=== PATIENT | female | born 1955 | race Hispanic/Latino ===

== ENCOUNTER 2024-10-03 14:11 | Outpatient (CLI) | payer MEDICARE, SELFPAY ==
--- NOTE | ~2024-10-03 | DEXA_ITS ---
Bone Density Report Name: HERNAN ESPINOZA Age: 68 Sex: Female Ethnicity: White Date of : 1955 Indication: postmenopausal; screening for osteoporosis; Referring Provider: CURT, DIANA Muhammad Study: Bone densitometry was performed. Exam Date: October 03, 2024 Accession number: [id number] Bone Density: Region BMD T-score Z-score Classification AP Spine(L1-L4) 0.825 -2.0 -0.1 Osteopenia Femoral Neck (Left) 0.720 -1.2 0.4 Osteopenia Total Hip (Left) 0.826 -1.0 0.4 Normal Femoral Neck (Right) 0.659 -1.7 -0.1 Osteopenia Total Hip (Right) 0.798 -1.2 0.1 Osteopenia Total Hip Mean 0.812 -1.1 0.3 Osteopenia World Health Organization criteria for BMD impression classify patients as: Normal (T-score at or above -1.0), Osteopenia (T-score between -1.0 and -2.5), or Osteoporosis (T-score at or below -2.5). 10-year Fracture Risk(1): Major Osteoporotic Fracture 10% Hip Fracture 1.4% Reported Risk Factors: [place] (), Neck BMD=0.659, BMI=24.7 (1) FRAX(R) Version 3.08. Fracture probability calculated for an untreated patient. Fracture probability may be lower if the patient has received treatment. Clinical Information Provided by Patient: Impression: The patient has low bone mass, based on the Total Spine T-score. The patient has an estimated ten-year risk of hip fracture of 1.4% and an estimated ten-year risk of major fracture of 10%, based on the WHO FRAX algorithm. Discussion: BONE DENSITY IS LOW AT ONE OR MORE SKELETAL SITES. This patient's lowest T-score is low at one or more skeletal sites. It meets the World Health Organization's (WHO) criteria for ?low bone mass? (T-score between -1.0 and -2.5). The patient's 10-year risk of fracture as calculated by FRAX is less than the threshold where pharmacological therapy is recommended by the National Osteoporosis Foundation (NOF). However, all treatment decisions require clinical judgment and consideration of individual patient factors, including patient preferences, comorbidities, previous drug use, risk factors not captured in the FRAX model (e.g., frailty, falls, vitamin D deficiency, increased bone turnover, interval significant decline in bone density) and possible under or overestimation of fracture risk by FRAX. The patient should follow a healthful lifestyle (good nutrition with adequate calcium and vitamin D, and appropriate weight-bearing exercise). Follow-Up: Consider repeating this study in 2 to 3 years to reassess this patient's status, or sooner if there is some new clinical indication. Reported by: LUC on 10/03/2024 3:11:00 PM. Reviewed, dictated and finalized at location [facility]
== END 2024-10-03 14:12 | disposition home or self-care (01) ==
PROVIDERS: Visit Provider Internal Medicine
DX: M85.89 Other specified disorders of bone density and structure, multiple sites (principal); M81.0 Age-related osteoporosis without current pathological fracture
CPT/HCPCS: 77080

== ENCOUNTER 2025-02-06 14:39 | Outpatient (CLI) | payer MEDICARE, SELFPAY ==
--- NOTE | ~2025-02-06 | MM_ITS ---
EXAMINATION: MM screening sahil BI w marisol HISTORY: Screening TECHNIQUE: Craniocaudal and mediolateral oblique 3-D tomosynthesis images were obtained and synthetic 2-D images were generated. CAD analysis was submitted and interpreted. COMPARISON: No prior mammogram is available for comparison at this institution. BREAST PARENCHYMAL COMPOSITION: Dense: The breasts are heterogeneously dense, which may obscure small masses FINDINGS: There is a cluster of indeterminate calcifications in the lower outer quadrant of the left breast, middle third. There are no suspicious masses, calcifications or architectural distortion in t he right breast to suggest malignancy. IMPRESSION: 1. Cluster of indeterminate left breast calcifications. 2. Magnification views are recommended. BI-RADS Category 0: Incomplete: Needs additional imaging evaluation. Reviewed, dictated and finalized at location A.
--- OUTSIDE RECORDS SUMMARY | 2025-02-06 14:52 | XMS_ITS | Data Portability ---
Author Organization [place] [employer], Main Office Address [address] [place] [address] Assessment Encounter Date Assessment Date Assessment LastModified by Organization Details LastModified Time 11/01/2024 11/01/2024 Assessment: Mild OSAHS, AHI = 12 Plan: The following were reviewed and explained to the patient: [facility] home sleep study 10/19/23 AHI = 12, supine AHI = 21 [facility] titration sleep study 12/23/23 [employer] wide Melissa nasal mask @ 8 cmH2O Educated the patient on problems and solutions associated with positive airway pressure (PAP) use. Difficulty tolerating pressure, mask leaks, intolerance of interface, nasal congestion, claustrophobic response, dry mouth, and unintentional mask removal during sleep were covered. General information on sleep disordered breathing, evaluation of sleep disordered breathing, treatment with PAP therapy, and living with PAP therapy were covered. We discussed with the patient the impact of weight on: Sleep disordered breathing Mixed hyperlipidemia DM OA We discussed with the patient the benefit of therapy on: Sleep disordered breathing DM Mandibular Advancement Device (MAD) or Mandibular Advancement Split (MAS) therapy discussed. Patient's records will be sent to the specialist of choice. Factors that may negatively impact MAD/MAS candidacy were discussed as follows: history of cancer in head/neck/mouth, history of radiation treatment, gum disease, use of dentures, presence of eight or less teeth in upper and lower jaw, decay or broken teeth/fillings, jaw joint pain or clicking/popping, ear problems such as congestion/tinnit us/pain/vertigo, neck/back/facial pain, frequent headaches, teeth grinding or teeth clenching, etc. Educated the patient on sleep hygiene measures. Relaxing rituals to rest easy, understanding foods with positive and negative impact on sleep, creating a peaceful sleep environment, timing of exercise, using herbal sleep aids, and practicing sleep-friendly meditation were covered. To determine how much sleep is needed, the patient will assess where she falls on the spectrum, examine what lifestyle factors such as work schedules and stress are affecting the quality and quantity of sleep. In general, adults need 7-9 hours of sleep. Educated the patient regarding foods that promote sleep. These include but are not limited to cherries, bananas, toast, oatmeal, and warm milk. Educated the patient regarding foods and drinks to avoid before bedtime. These include but are not limited to aged cheese, chocolate, spicy foods, tomato-based sauces, soy, ginseng tea and processed meat. Advocated influenza vaccination annually and pneumonia vaccination SAHARA. Advocated weight loss through diet and exercise. Patient's ideal body weight according to height and gender is up to 120 lbs. Encouraged patient to adjust caloric intake to maintain/achieve ideal body weight, emphasizing on fruits, vegetables, whole grains, and fat-free or low-fat products. These include lean meats, poultry, fish, beans, eggs, and nuts and foods that are low in saturated fats, trans-fats, cholesterol, salt (sodium), and glycemic index. Stressed the importance of regular exercise up to the patient's capacity limits. In this case, we recommend 20 min daily walking, 2 days a week of resistance training. Patient to monitor BP daily and bring records to PCP for further management. Follow-up: 1 month after MAD use, if she qualifies [email or web address] Not available 11/01/2024 12:00:16 Plan of Treatment Reminders Order Date Submit Date Provider Last Modified By Organization Details Last Modified Time Details Appointments None recorded. Lab glycohemogl obin, total, blood 2024 025 [facility], [address] [place], [address], 5 16:25:39 BMP, serum or plasma 2024 025 [facility], [address] [place], [address], 5 16:25:39 HbA1c (hemoglobin A1c), blood 2023 024 [facility], [address] [place], [address], 4 09:43:38 BMP, serum or plasma 2023 024 [facility], [address] [place], [address], 4 20:42:13 lipid panel, serum 2023 024 [facility], [address] [place], [address], 4 20:42:15 Referral dentist referral - [facility] for VASILE, she wears partial dentures 2024 025 [email or web address], [address], [place], [address], 5 09:15:03 Procedures None recorded. Surgeries None recorded. Imaging MAMMO, screening, bilateral [address] [facility], [address] [address], [facility], [place], [address], 4 18:24:30 DEXA [address] [facility], [address] [address], [facility], [place], [address], 4 14:47:22 Medication Orders ibuprofen 600 mg tablet 2023 024 [facility] #[id number], [address], [place], [address], 4 16:46:00 icosapent ethyl 1 gram capsule 2023 024 [facility]acy #[id number], [address], [place], [address], 4 16:45:58 naproxen 500 mg tablet 2023 024 [email or web address] [facility][id number], [address], [place], [address], 5 15:37:05 glipizide 10 mg tablet 2023 024 [facility]/Pharmacy #[id number], [address], [place], [address], 5 11:35:08 Ozempic 1 mg/dose (4 mg/3 mL) subcutaneou s pen injector 2023 024 [facility]/Pharmacy #[id number], [address], [place], [address], 4 15:22:22 Patient TargetsNo targets recorded. Patient InstructionsNo instructions recorded. Reason for Referral Dentist Referral for Obstruc tive sleep apnea syndrome MAD for VASILE, she wears partial dentures Referring Physician: Brent Hopkins, Pulmonary Disease, Encounter Date: 11/01/2024 Results Created Date Observation Date Name Description Value Unit Range Abnormal Flag Note LastModifiedBy Organization Detail LastModifiedTime 05/31/2005/31/2024 BASIC METAB OLIC PANEL sodium 138 mmol/ L 137-14 5 Not Available [facility] (Lab) [address] [place], [address], 05/31/2024 20:42:13 05/31/2005/31/2024 BASIC METAB OLIC PANEL potassium 4.5 mmol/ L 3.5-5. 1 Not Available [facility] (Lab) [address] [place], [address], 05/31/2024 20:42:13 05/31/20 24 05/31/2024 BASIC METAB OLIC PANEL chloride 109 mmol/ L 98-107 high Not Available [facility] (Lab) [address] [place], [address], 05/31/2024 20:42:13 05/31/20 24 05/31/2024 BASIC METAB OLIC PANEL carbon dioxide 23 mmol/ L 22-30 Not Available [facility] (Lab) [address] [place], [address], 05/31/2024 20:42:13 05/31/20 24 05/31/2024 BASIC METAB OLIC PANEL anion gap 10.5 mmol/ L 14-22 low Not Available [facility] (Lab) [address] [place], [address], 05/31/2024 20:42:13 05/31/20 24 05/31/2024 BASIC METAB OLIC PANEL glucose 159 mg/dL 70-99 high Not Available [facility] (Lab) [address] [place], [address], 05/31/2024 20:42:13 05/31/20 24 05/31/2024 BASIC METAB OLIC PANEL BUN 15 mg/dL 8-19 Not Available [facility] (Lab) [address] [place], [address], 05/31/2024 20:42:13 05/31/20 24 05/31/2024 BASIC METAB OLIC PANEL creatinine 0.60 mg/dL 0.66-1 .25 low Not Available [facility] (Lab) [address] [place], [address], 05/31/2024 20:42:13 05/31/2005/31/2024 BASIC METAB OLIC PANEL GFR >60 Refer ence Range : [place] ge GFR Healt hy Adult : >60 mL/mi n/1.7 3 m2 Chron ic Kidne y Disea se: 15-60 mL/mi n/1.7 3 m2 Kidne y Failu re: <15/m L/min /1.73 m2 www.n iddk. nih.g ov The MDRD study equat ion has not been valid ated in child nancy <18 years of age; pregn ant women ; the elder ly >85 years of age; or in some racia l or ethni c subgr oups, such as Hispa nics. Outsi de the valid ated higinio eters , estim ated GFR is less accur ate, requi ring clini emilie judgm ent on a case- by-ca se basis . Clini emilie inter preta tion for other races and ages must be made by the clini jojo. The MDRD study equat ion has not been valid ated for the evalu ation of serum creat inine relat ed to nutri abiodun l statu s or medic ation usage . For perso ns <18 years of age, a pedia tric GFR calcu lator is avail able on the [facility] websi te: https :[email or web address] [email or web address] rosen.o valeria/pr ofess ional s/kdo qi/gf r_cal culat or Not Available [facility] (Lab) [address] [place], [address], 05/31/2024 20:42:13 05/31/2005/31/2024 BASIC METAB OLIC PANEL calcium 10.0 mg/dL 8.4-10 .2 Not Available [facility] (Lab) [address] [place], [address], 05/31/2024 20:42:13 05/31/2005/31/2024 LIPID PANEL cholesterol 165 mg/dL 140-19 9 NIH DARRELL NSUS RECOM MENDA TION FOR KANDICE STERO L: ADULT CHILD LOW RISK: <200 <170 BORDE RLINE : <200- 239 ----- HIGH RISK: >240 >200 Not Available [facility] (Lab) [address] [place], [address], 05/31/2024 20:42:15 05/31/2005/31/2024 LIPID PANEL triglyceride s 361 mg/dL 0-150 high NIH DARRELL NSUS REPOR T RECOM MENDA TION FOR TRIGL YCERI MAGNOLIA: ADULT CHILD LOW RISK: <150 ----- BODER LINE: 150-1 99 ----- HIGH RISK: >200 ----- Not Available [facility] (Lab) [address] [place], [address], 05/31/2024 20:42:15 05/31/20 24 05/31/2024 LIPID PANEL HDL cholesterol 33 mg/dL 40- low Not Available [facility] (Lab) [address] [place], [address], 05/31/2024 20:42:15 05/31/20 24 05/31/2024 LIPID PANEL LDL cholesterol, calculated 60 mg/dL 0-130 NIH DARRELL NSUS REPOR T RECOM MENDA TIONS FOR LDL: ADULT CHILD LOW RISK <130 <110 (OPTI MAL LDL) <100 ----- BORDE RLINE : 130-1 59 ----- HIGH RISK: >160 >130 A TRIGL YCERI DE RESUL T >400 INVAL IDATE S THE CALCU LATIO N FOR LDL FRACT IONAT ION - THE LDL RESUL T WILL NOT BE REPOR DAVID. Not Available [facility] (Lab) [address] [place], [address], 05/31/2024 20:42:15 05/31/20 24 05/31/2024 HEMOG LOBIN A1C HA1C 8.7 % 4.0-6. 0 high Diabe tyler Scree taz Crite manan: <5.7% Consi stent with absen ce of diabe tyler 5.7-6 .4% Consi stent with incre ased risk for diabe tyler (pred iabet es) >OR=6 .5% Consi stent with diabe tyler REFER ENCE: Diabe tyler Care 2016, 39(Lee ppl.1 ):s13 -s22 Not Available [facility] (Lab) [address] [place], [address], 05/31/2024 21:25:00 10/12/19 25 10/03/2024 DEXA No observ ation record ed. [facility] ([facility]) [address], [place], [address], 10/12/2024 18:49:33 Result Notes None recorded. Problems Name Problem SNOMED Code Status Onset Date Resolution Date Notes Provider Name and Address Organization Details Recorded Time Hyperpara thyroidis m 11209198 Active 2022 Not Available [facility] 4 02:09:39 Abdominal pain 64328800 Completed 202205/25/2023 Ольга rojas RMA null, [place] [facility] 3 11:27:15 Acute urinary tract infection 975247288 Completed 202205/25/2023 Ольга rjoas, RMA null, [place] [facility] 3 11:26:31 Laborator y test result abnormal 243881990 Completed 202209/15/2023 Ольга rojas RMA null, [place] [facility] 3 15:36:01 Hypertrig lyceridem ia 441951933 Active 2022 Not Available [facility] 4 02:09:39 Type 2 diabetes mellitus 97709354 Completed 202209/15/2023 Brent Hopkins MD [address] [place] [address], [address] , [place] [facility] 5 12:01:33 Osteoarth ritis 773769274 Active 2022 Not Available [facility] 4 02:09:39 Fatigue 41336262 Completed 202209/15/2023 Ольга rojas RMA null, [place] [facility] 3 15:35:36 Polyp of colon 21217741 Active 2023 Ольга rojas RMA null, [place] [facility] 4 14:59:45 Obstructi ve sleep apnea syndrome 31625899 Active 2023 Ольга rojas RMA null, [place] [facility] 4 14:59:47 Hyperlipi demia 76926268 Active 2023 Ольга rojas, RMA null, [place] [facility] 4 14:59:37 Type 2 diabetes mellitus 10635543 Active 2023 Brent Hopkins MD [address] [facility], [address], [place], [address] , [place] [facility] 5 12:01:33 Sleep apnea 73879064 Active 2023 Ольга rojas, RMA null, [place] [facility] 4 14:59:43 Adult health examinati on Active 2023 Ольга rojas, RMA null, [place] [facility] 4 14:59:39 Tendiniti s of right elbow 27509632738 139202 Active 2023 sEtrada Harry MD [address] [facility], [address], [place], [address] , [place] [facility] 4 14:47:33 Postmenop ausal osteoporo sis 374169142 Active 2024 Brooke Patel MA null, [place] [facility] 5 10:46:06 Notes:[facility] titration sleep s tudy 12/23/23 Mark wide Melissa nasal mask @ 8 cmH2O Medical History: Mild OSAHS, AHI = 12, 10/19/23, on CPAP c/o IVRC Mixed hyperlipidemia T2DM OA Procedure History: Tubal ligation 1985 Colonoscopy with polypectomy 2017 Occupational History: Retired nurse Problem Notes None recorded. Procedures Surgical History Date Name Laterality Status Provider Name and Address Organization Details Recorded Time Lasik completed Nydia Hancock on, ROAD TEST EXAMINER [place] [facility] [employer] 03/08/2023 11:56:30 Imaging Results Imaging Date Name Status LastModified by Organizatio n Details LastModified Time 10/03/2024 [facility] [address], [place], [address], 10/12/2024 18:49:33 Procedure Notes None recorded. Medical Equipment None Reported. Allergies Allergen ID Allergen Name Allergen Category Reaction Reaction Severity Criticality Documentation Date Start Date Code Code System Note Provider Name and Address Organization Details Recorded Time 62412 metformin medicatio n diarrhea Not available Not available 03/08/2023 6809 RxNorm Estrada Harry MD [address], [facility] [address], [place], [address], [facility] [employer] [facility] 3 12:15:02 Medications Name Sig Start Date Stop Date Status Note LastModified by Organization Details LastModified Time glipizide 10 mg tablet Take 1 tablet twice a day by oral route for 90 days. 11/01 completed Not Available Not Available Not Available ibuprofen 600 mg tablet Take 1 tablet 3 times a day by oral route as needed. active Not Available Not Available No t Available naproxen 500 mg tablet Take 1 tablet twice a day by oral route as needed. 10/27 completed Not Available Not Available Not Available cyclosporin e 0.05 % eye drops in a dropperette 09/07 completed Not Available Not Available Not Available rosuvastati n 10 mg tablet TAKE 1 TABLET BY MOUTH EVERY DAY active Not Available Not Available No t Available rosuvastati n 20 mg tablet Take 1 tablet every day by oral route. active Not Available Not Available No t Available nitrofurant oin monohydrate /macrocryst als 100 mg capsule Take 1 capsule every 12 hours by oral route for 5 days. 04/27 completed Not Available Not Available Not Available GaviLyte-G 236 gram-22.74 gram-6.74 gram-5.86 gram oral solution 01/16 completed Not Available Not Available Not Available OneTouch Verio test strips One strip BID to test BS 10/27 completed Not Available Not Available Not Available Vascepa 1 gram capsule Take 2 capsules twice a day by oral route. active Not Available Not Available No t Available Jardiance 25 mg tablet Take 1 tablet every day by oral route. active Not Available Not Available No t Available OneTouch Delica Plus Lancet 30 gauge USE TO TEST ONCE DAILY 10/27 completed Not Available Not Available Not Available Ozempic 1 mg/dose (4 mg/3 mL) subcutaneou s pen injector INJECT 1 MG UNDER THE SKIN ONCE WEEKLY 2024 active Not Available Not Available Not Avai lable Ozempic 0.25 mg or 0.5 mg (2 mg/3 mL) subcutaneou s pen injector INJECT 0.5 MG UNDER THE SKIN EVERY WEEK 09/11 completed Not Available Not Available Not Available Vitals Date Recorded Body height Body mass index (BMI) Body weight Body temperature Heart rate Oxygen saturation Oxygen saturation in Arterial blood by Pulse oximetry Systolic blood pressure Diastolic blood pressure Provider Name and Address Organization Details Last Updated DateTime 4 157.48 cm 24 kg/m2 64992.6 g 97.3 [degF] 108 /min 98 % 98 % 120 mm[Hg] 80 mm[Hg] Ольга orozco NORIS [employer] 4 14:52:04 Date Recorded Body height Body mass index (BMI) Body weight Body temperature Heart rate Oxygen saturation Oxygen saturation in Arterial blood by Pulse oximetry Systolic blood pressure Diastolic blood pressure Provider Name and Address Organization Details Last Updated DateTime 4 157.48 cm 24.3 kg/m2 64950.7 9 g 97.6 [degF] 74 /min 98 % 98 % 130 mm[Hg] 80 mm[Hg] Ольга orozco NORIS [employer] 4 14:30:36 Date Recorded Body weight Body temperature Body mass index (BMI) Body height Heart rate Oxygen saturation Oxygen saturation in Arterial blood by Pulse oximetry Systolic blood pressure Diastolic blood pressure Provider Name and Address Organization Details Last Updated DateTime 4 59035.7 9 g 97.4 [degF] 24.3 kg/m2 157.48 cm 87 /min 98 % 98 % 140 mm[Hg] 84 mm[Hg] Ольга orozco NORIS [employer] 4 16:12:47 Date Recorded Body height Body mass index (BMI) Body weight Body temperature Heart rate Oxygen saturation Oxygen saturation in Arterial blood by Pulse oximetry Systolic blood pressure Diastolic blood pressure Provider Name and Address Organization Details Last Updated DateTime 5 157.48 cm 24.3 kg/m2 12224.7 9 g 97.5 [degF] 101 /min 98 % 98 % 120 mm[Hg] 80 mm[Hg] Ольга Soriano NORIS orozco [employer] 14:49:40 Date Recorded Body height Body mass index (BMI) Body weight Body temperature Heart rate Oxygen saturation Oxygen saturation in Arterial blood by Pulse oximetry Systolic blood pressure Diastolic blood pressure Provider Name and Address Organization Details Last Updated DateTime 157.48 cm 24.3 kg/m2 72219.7 9 g 98.1 [degF] 71 /min 98 % 98 % 122 mm[Hg] 74 mm[Hg] Mercy Manrique MA [employer] 5 11:39:29 Date Recorded Heart rate Respiratory rate Provider N yogi and Address Organization Details Last Updated DateTime 11/01/2024 71 /min 15 /min Brent Hopkins MD [address], [address], [employer] 11/01/2024 12:01:48 Social History Question Answer Notes LastModified by Organizat ion Details LastModified Time Tobacco Smoking Status Never Smoker Nydia Childers CMA null, [employer] 03/08/2023 11:56:57 Do You Have An Advance Directive? No [email or web address] Information not available 03/08/2023 Are You Blind Or Do You Have Difficulty Seeing? Yes Wears Glasses [email or web address] Information not available 03/08/2023 Is Blood Transfusion Acceptable In An Emergency? No [email or web address] Information not available 03/08/2023 What Is Your Level Of Caffeine Consumption? Moderate [email or web address] Information not available 03/08/2023 In The 14 Days Before Symptom Onset, Have You Had Close Contact With A Laboratory-confi rmed COVID-19 While That Case Was Ill? No [email or web address] Information not available 03/08/2023 In The 14 Days Before Symptom Onset, Have You Had Close Contact With A Person Who Is Under Investigation For COVID-19 While That Person Was Ill? No [email or web address] Information not available 03/08/2023 Are You Deaf Or Do You Have Serious Difficulty Hearing? No [email or web address] Information not available 03/08/2023 What Type Of Diet Are You Following? VEGETARIAN [email or web address] Information not available 03/08/2023 Do You Have An Electrostatic Air Filter? Yes Information not available 10/26/2023 Have There Been Any Changes To Your Family Or Social Situation? No [email or web address] Information not available 03/08/2023 Do You Have A Humidifier? No Information not available 10/26/2023 Do You Use Insect Repellent Routinely? No Information not available 03/08/2023 [email or web address] Information not available 12/30/2023 Do You Have A Medical Power Of Bladder Tier? No [email or web address] Information not available 03/08/2023 Do You Have Moisture Problems In Your Home? No Information not available 10/26/2023 What Was The Date Of Your Most Recent Tobacco Screening? 11/01/2024 Information not available 11/01/2024 Do You Have Any Pets? No [email or web address] Information not available 03/08/2023 What Is Your Relationship Status? [email or web address] Information not available 03/08/2023 Do You Use Your Seat Belt Or Car Seat Routinely? Yes [email or web address] Information not available 03/08/2023 Are You Sexually Active? No [email or web address] Information not available 03/08/2023 Do You Have Smoke And Carbon Monoxide Detectors In Your Home? Yes [email or web address] Information not available 03/08/2023 Are You Passively Exposed To Smoke? Yes [email or web address] Information not available 03/08/2023 Are There Any Smokers In Your House? Yes [email or web address] Information not available 03/08/2023 Do You Use Sunscreen Routinely? No [email or web address] Information not available 03/08/2023 Has Tobacco Cessation Counseling Been Provided? No [email or web address] Information not available 03/08/2023 Have You Recently Traveled Abroad? No [email or web address] Information not available 03/08/2023 Do You Have Any Dietary Restrictions? No Information not available 03/08/2023 Sex: Unknown Functional Status Question Answer Note LastModified by Organizat ion Details LastModified Time Are you currently employed? Yes [email or web address] Information not available 03/08/2023 Do you have difficulty walking or climbing stairs? No [email or web address] Information not available 03/08/2023 Have you been exposed to chemicals or toxins? not that aware of Information not available 10/26/2023 Do you have transportation difficulties? No [email or web address] Information not available 03/08/2023 Are you able to care for yourself? Yes [email or web address] Information n ot available 03/08/2023 Do you have difficulty dressing or bathing? No [email or web address] Information not available 03/08/2023 What is your exercise level? Moderate [email or web address] Information not available 03/08/2023 Do you use any illicit or recreational drugs? No [email or web address] Information not available 03/08/2023 Do you or have you ever used any other forms of tobacco or nicotine? No [email or web address] Information not available 03/08/2023 What is your level of alcohol consumption? None [email or web address] Information not available 03/08/2023 Are you able to walk? YESWOREST [email or web address] Information not available 03/08/2023 Do you have difficulty doing errands alone? No [email or web address] Information not available 03/08/2023 What is your occupation? retired [email or web address] Information not available 03/08/2023 Mental Status Question Answer Note LastModified by Organizat ion Details LastModified Time Do you feel stressed (tense, restless, nervous, or anxious, or unable to sleep at night)? [id number] [email or web address] Information not available 03/08/2023 Do you have difficulty concentrating, remembering or making decisions? No [email or web address] Information no t available 03/08/2023 Family History Relationship Description Onset Age of this Age Resolved Age Notes LastModified by Organization Details LastModified Time Mother Diabetes mellitus [email or web address] Not available 08/2023 11:56:12 Mother Hyperlipidem ia [email or web address] Not available 08/2023 11:56:19 Medical History No medical history recorded. Gynecological HistoryNo gynecological history recorded. Obstetrics History GPAL:G 0 P 0 0 0 0 Immunizations Vaccine Type Date Status Note Provider Nam e and Address Organization Details Recorded Time Influenza, high-dose, quadrivalent, PF 3 completed Estrada Harry MD [address] [facility], [facility] [address], [place], [address], [facility] [employer] 06/29/2023 15:23:10 Pneumococcal conjugate PCV 13 4 completed Bubba Simmons, ROAD TEST EXAMINER null, [place] [facility] [employer] [facility] 10/06/2023 16:44:05 Pneumococcal conjugate PCV 13 4 completed Estrada Harry MD [address], [address], [place], [address], [facility] [employer] [facility] [employer] [facility] 10/21/2023 09:26:28 Influenza, high-dose, trivalent, PF 4 completed Estrada Harry MD [address], [address], [place], [address], [facility] [employer] 07/03/2024 17:35:37 Past Encounters Encounter ID Performer Location Encounter Start Date Encounter Closed Date Diagnosis/Indication Diagnosis SNOMED-CT Code Diagnosis ICD10 Code Diagnosis Note [id number] Estrada Harry MD [facility] Internal Med [facility] [address] [place] [address] 03/08/2023 11:49:34 03/08/2023 12:30:31 Adult health examination 345722119 Z00.00 Mammo- 07/2022 Dexa- 2 P1- 2021 PPV23- Flu-2022 Colonoscop y- 2017 COVID- 2 vaccines, 1 booster Diabetes mellitus 019832 09 E11.9 labs , adjust meds Hyperlipidemia 40544575 E78.5 labs Hyperparathyroidism 6699 9008 E21.3 Hypercalcemia 31664555 E 83.52 labs Abdominal pain 13762477 R10.9 [id number] Estrada Harry MD [facility] Internal [address] [place] [address] 03/22/2023 14:59:33 03/22/2023 16:23:41 Diabetes mellitus 58122449 E11.9 a1C was not done, reorder Hyperparathyroidism 6699 9008 E21.3 needs ultra sound, refer to ENT [id number] Estrada Harry MD [facility] Internal [address] [place] [address] 03/26/2023 10:48:04 03/26/2023 11:26:57 Diabetes mellitus 42281955 E11.9 a1C 9.8, dist discussed, monitor accu checks , add jardiance [id number] Estrada Harry MD [facility] Internal [place] [address] [facility] [place] [address] 04/27/2023 14:09:15 04/27/2023 15:04:51 Diabetes mellitus 62648625 E11.9 getting better, watch diet, keep the same meds, labs in 2 months [id number] Estrada Harry MD [facility] Internal [place] [address] [facility] [place] [address] 06/29/2023 14:08:42 06/29/2023 14:45:14 Type 2 diabetes mellitus 55434303 E11.9 getting better, labs then decide about the meds Hyperlipidemia 06965068 E78.5 under control Hypertriglyceridemia 302 329144 E78.1 keep watching diet Hypercalcemia 71769633 E 83.52 check labs Hyperparathyroidism 6699 9008 E21.3 nl scan Osteoarthritis 498831006 M19.90 Administra tion of influenza vaccine 54284943 Z23 [id number] Estrada Harry MD [facility] [address] [facility] [place] [address] 09/07/2023 14:42:11 09/07/2023 15:28:38 Fatigue 89439179 R53.83 Sleep michael su disturbance 92119057 G47.9 sleep apnea score done, report in the chart Diabetes mellitus 061118 09 E11.9 Hyperlipidemia 96249292 E78.5 under control Sleep apnea 01067078 G47 .30 [id number] Estrada Harry MD [facility] Internal [place] [address] [facility] [place] [address] 10/06/2023 14:51:32 10/06/2023 15:35:40 Diabetes mellitus 45846921 E11.9 start ozempic Polyp of colon 66576961 K63.5 last colonoscop y 2017 Administra tion of pneumococcal vaccine 85298149 Z23 [id number] Brent Hopkins MD [facility] Pulmonolo gy [address] [address] 10/26/2023 10:45:07 10/28/2023 15:17:15 Obstructive sleep apnea syndrome 17467677 G47.33 G47.36 G47.61 [id number] Estrada Harry MD [facility] Internal Med [place] [address] [facility] [place] [address] 11/15/2023 15:03:12 11/15/2023 15:41:39 Diabetes mellitus 05184782 E11.9 ^ ozempic to 0.5 [id number] Brent Hopkins MD [facility] Pulmonolo gy [place] [address] [address] 12/30/2023 14:51:10 12/31/2023 08:44:29 Obstructive sleep apnea syndrome 02874451 G47.33 G47.36 G47.61 [id number] Estrada Harry MD [facility] Internal [address] [address] 01/17/2024 14:38:48 01/17/2024 15:31:37 Type 2 diabetes mellitus 07987636 E11.9 getting better, 6 OZEMPIC to 1 mg Hyperlipidemia 77743217 E78.5 NOT under control, ^ the dose Hypertriglyceridemia 302 083607 E78.1 keep watching diet Hypercalcemia 93294152 E 83.52 fair Hyperparathyroidism 6699 9008 E21.3 nl scan Osteoarthritis 176606988 M19.90 Sleep apnea 08071994 G47 .30 waiting for cpap [id number] Estrada Harry MD [facility] Internal [address] [place] [address] 05/22/2024 14:42:06 05/22/2024 15:36:20 Type 2 diabetes mellitus 29101431 E11.9 getting better, Hyperlipidemia 22309461 E78.5 on meds Hypertriglyceridemia 302 686431 E78.1 keep watching diet Hypercalcemia 46733063 E 83.52 fair Hyperparathyroidism 6699 9008 E21.3 nl scan Osteoarthritis 006843390 M19.90 Sleep apnea 31953928 G47 .30 waiting for cpap, urged to make appt Adult heal th examination 634685068 Z00.00 Mammo- 07/2022- [facility]- 0416O11- 1080YCH04- Flu-3Co lonoscopy- 2018, 11/16/23CO VID- 2 vaccines, 1 booster Screening mammography 24 723855 Z12.31 Screening for osteoporosis 973170079 Z13.806 [id number] Estrada Harry MD [facility] Internal [facility] [address] [facility] [place] [address] 07/03/2024 14:08:19 07/03/2024 14:57:05 Administration of influenza vaccine 63473992 Z23 Tendinitis of right elbow 4848854670 2201593 M67.823 take naprosyn 500 bidice angely Diabetes mellitus 040461 09 E11.9 uncontroll ednot watching dietdiet discussedr fatimah Glipizide [id number] Estrada Harry MD [facility] Internal [facility] [address] [facility] [place] [address] 08/15/2024 15:43:32 08/15/2024 16:53:55 Type 2 diabetes mellitus 74607559 E11.9 getting better, accu checks reviewed, advised to stop eating sweets Hyperlipidemia 46507909 E78.5 on meds Hypertriglyceridemia 302 733536 E78.1 keep watching diet Hypercalcemia 64606109 E 83.52 fair Hyperparathyroidism 6699 9008 E21.3 nl scan Osteoarthritis 107446429 M19.90 Sleep apnea 84138373 G47 .30 waiting for cpap, urged to make appt Adult heal th examination 420368042 Z00.00 Mammo- 07/2022- DUE- Has not scheduled, discussedD exa- 2021- Scheduled for 09/20247794G22- 3790BGC83- Flu-4Colono scopy- 2018, 11/16/23CO VID- 2 vaccines, 1 booster [id number] Estrada Harry MD [facility] Internal Med [place] [address] [place] [address] 10/10/2024 14:41:55 10/10/2024 15:33:03 Diabetes mellitus 72347958 E11.9 getting betterkeep watching diet [id number] Brent Hopkins MD [facility] Pulmonolo gy [place] [address] [place] [address] 11/01/2024 11:22:54 11/01/2024 13:04:03 Obstructive sleep apnea syndrome 79028721 G47.33 Health Concerns Section Related Observation LastModified by Organization Detai ls LastModified Time None Recorded Concern Status LastModified by Organization Details LastModified Time None Recorded Advance Directives Directive N: Payers Encounter Date Sequence Insurance Name Policy Number Policy Mchugh Covered Member ID Mchugh Member ID Guarantor Name 05/22/2024 1 [facility] (MEDICARE REPLACEMENT/A DVANTAGE - PPO) [id number] Mendez Jennifer Dastig [id number] Mendez Jennifer Dastig 07/03/2024 1 [facility] (MEDICARE REPLACEMENT/A DVANTAGE - PPO) [id number] Mendez Jennifer Dastig [id number] Mendez Jennifer Dastig 08/15/2024 1 [facility] (MEDICARE REPLACEMENT/A DVANTAGE - PPO) [id number] Mendez Jennifer Dastig [id number] Mednez Jennifer Dastig 10/10/2024 1 [facility] (MEDICARE REPLACEMENT/A DVANTAGE - PPO) [id number] Mendez Jennifer Dastig [id number] Mendez Jennifer Dastig 11/01/2024 1 [facility] (MEDICARE REPLACEMENT/A DVANTAGE - PPO) [id number] Mendez Jennifer Dastig [id number] Mendez Jennifer Dastig Notes Date Note Type Note Provider Name and Address Organization Details Recorded Time 4 text/html Pt is here today for her routine follow [place] , family in townPT IS NOT FASTINGMedicare Wellness Exam she was not feeling well for the last 4 days, had runny nose and cough but feeling better today and has no symptoms DM-Has not been checking Accu checks, diet better, A1c was 9, then 8 (01/13/24)Gets eye exam yearly - 03/2024- [facility]- in chartNo hyperglycemiaNo numbness or tinglingCould not take Metformin- caused too much diarrheaMed- Jardiance 25 mg qd, Ozempic 0.5 mg qd Hyperlipidemia-on meds and under controlMed- Rosuvastatin 10 mg Hypertriglyceridemia- advised to watch diet Hyperparathyroidism- PTH was high, calcium high, parathyroid scan nl Hypercalcemia-mild, due to hyperthyroidism, Osteoarthritis- naprosyn prn Colon polyp- had colonoscopy 2023, no report Sleep apnea- waiting for cpap ( has just called her to 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 Said she was pulling up heavy carpet and felt something happen but she just ignored it thinks it will get better but it has not. Now hurting to the point there is things that she is limited to do like cleaningno swellingno weakness Also needs to go over lab results. A1c was 8.7Takes Ozempic and JardianceTriglycerides were 361. Currently on Rosuvastatin 20mg daily Estrada Harry MD [address], [place], [address], Xan[facility] 07/03/2024 17:35:52 4 text/html Pt is here today for her routine follow upshe [place] , family in townPT IS NOT FASTING DM-Accu checks- 99-169,Not watching diet, eating [id number] -8.7Gets eye exam yearly - 03/2024- [facility]- in chartNo hyperglycemiaNo numbness or tinglingCould not take Metformin- caused too much diarrheaMed- Jardiance 25 mg qd, Ozempic 1 mg qd Hyperlipidemia-on meds and under controlMed- Rosuvastatin 10 mg Hypertriglyceridemia- advised to watch diet, take fish oil caps Hyperparathyroidism- PTH was high, calcium high, parathyroid scan nl Hypercalcemia-mild, due to hyperthyroidism, Osteoarthritis- naprosyn prn Colon polyp- had colonoscopy 2023, no report Sleep apnea- has cpap but can't use it Estrada Harry MD [address], [place], [address], Xanody[facility] 08/15/2024 16:50:24 5 text/html Pt is here today for a 2 month follow upGlucose 109-136. States she has cut back on sweets. on ozempicaccu checks are under 122losing weight Estrada Harry MD [address] [facility], [facility] [address], [place], [address], [place] [facility] [employer] 10/10/2024 15:28:37 5 text/html Primary care/Referring provider: Estrada Harry MD CC: I cannot use the CPAP because of all the tubes. I bought and use an anti snoring device artifact snoring treatment in the meantime. I wear partial dentures above and below. During the [facility] home sleep study 10/19/23, AHI = 12, supine AHI = 21. 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 The patient does not need the ramp to start low and go up slowly on the pressure. There is no xerostomia in a.m. There is no hose/mask condensation with water. The patient owns a [employer] wide Melissa nasal mask without chin strap. There is no claustrophobia, no nostril/nose bridge irritation, no facial rash, no facial numbness, no nosebleeding. The patient feels less refreshed upon waking and daytime alertness is mildly improved. Energy levels are sustained until noon. At home, the patient sleeps from 12 am to 8 am and wakes up without an alarm. Snoring: heavy, since 1980s.Snorting: yesChoking: yesCoughing: yesGasping: yesGagging: yesSighing: yesWitnessed apnea: yesTwitching or jerking of leg(s), arm(s), body, head: yesTeeth grinding: noTeeth clenching: noSleeptalking: noSleepwalking: noSleep crying: noBedwetting: noTongue/lip/gum/cheek biting: noSleeping with open mouth: yesSleep paralysis: yesHypnagogic hallucinations: noHypnopompic hallucinations: noVivid dreams: yesDifficulty with sleep onset: noDifficulty with sleep maintenance: yesSleep interruptions: snoringPatient wakes up with: fatigue, xerostomia, sore throat, hoarse voice, headaches, cognitive impairment, dexterity impairmentDaytime cataplexy: noMorning hypersomnolence: yesAfternoon hypersomnolence: yesCaffeine sources in diet: coffee 1 cup per day, tea 1 cup per day, chocolate 1 candy per day Associated medical and psychiatric conditions:Congestive heart failure: noCoronary artery disease: noMyocardial infarction: noHypertension: noStroke: noBronchial asthma: noChronic obstructive pulmonary disease: noDepression: noBipolar disorder: noAnxiety: noPanic disorder: noPosttraumatic stress disorder: noAttention deficit and hyperactivity disorder: noObsessive Compulsive disorder: noSchizophrenia: noSchizoaffective disorder: noPersonality disorder: noChronic analgesic use: noChronic sedative/hypnotic use: no EPWORTH SLEEPINESS SCALE (ESS) CHANCE OF DOZING SCORE0 = would never doze1 = slight chance of dozing2 = moderate chance of dozing3 = high chance of dozing SITUATION AND CHANCE OF DOZINGSitting and reading - 0Watching television - 0Sitting inactive in a public place (e.g. a theater or meeting) - 0As a passenger in a car for an hour without a break - 0Lying down to rest in the afternoon when circumstances permit - 0Sitting and talking to someone - 0Sitting quietly after lunch without alcohol - 0In a car, while stopped for a few minutes in the traffic - 0TOTAL SCORE 0Subjectively, patient has no chance of dozing. Brent Hopkins MD [address] [place] [address] [address], [place], [address], [place] [facility] 11/01/2024 12:07:14 OBGyn Episode No OBEpisode recorded.
== END 2025-02-06 14:40 | disposition home or self-care (01) ==
PROVIDERS: PCP Internal Medicine; Visit Provider Internal Medicine
DX: Z12.31 Encounter for screening mammogram for malignant neoplasm of breast (principal); R92.1 Mammographic calcification found on diagnostic imaging of breast
CPT/HCPCS: 77063; 77067

== ENCOUNTER 2025-03-13 10:14 | Outpatient (CLI) | payer MEDICARE, SELFPAY ==
--- NOTE | ~2025-03-13 | MMUS_ITS ---
EXAMINATION: MM diagnostic sahil LT w marisol, US breast LT complete HISTORY: Follow-up clustered indeterminate left breast calcifications TECHNIQUE: Additional 3-D tomosynthesis images of the left breast were performed and synthetic 2-D im ages were generated. CAD analysis was submitted and interpreted. High resolution complete left breast ultrasound was performed. COMPARISON: 02/06/2025 BREAST PARENCHYMAL COMPOSITION: Not dense: There are scattered areas of fibroglandular density. FINDINGS: MAMMOGRAPHIC FINDINGS: There are no suspicious masses, calcifications or architectural distortion. Linear calcifications in the lower outer quadrant of the left breast are most likely vascular. ULTRASOUND: Complete US of all 4 quadrants of the left breast/s and retroareolar region was reviewed. Normal hete rogeneous echotexture without focal solid or cystic mass. IMPRESSION: 1. No evidence for malignancy in the left breast. 2. Routine yearly screening mammogram and regular clinical breast examination are recommended. BI-RADS Category 2: Benign finding(s). Reviewed, dictated and finalized at location A. IMPRESSION: 1. No evidence for malignancy in the left breast. 2. Routine yearly screening mammogram and regular clinical breast examination a re recommended. BI-RADS Category 2: Benign finding(s).
--- OUTSIDE RECORDS SUMMARY | 2025-03-13 11:26 | XMS_ITS | Data Portability ---
Author Organization [place] [facility] [employer], Main Office Address [address] [place] [address] Assessment Encounter Date Assessment Date Assessment LastModified by Organization Details LastModified Time 11/01/2024 11/01/2024 Assessment: Mild OSAHS, AHI = 12 Plan: The following were reviewed and explained to the patient: [facility] home sleep study 10/19/23 AHI = 12, supine AHI = 21 [facility] titration sleep study 12/23/23 [facility] [...] Organization Details Last Modified Time Details Appointments Any 15 2024 11:30A Joselito Harry MD Not available Not available Not available Lab glycohemo globin, total, blood 2024 025 [facility], [address] [place], [address], 10/11/2024 16:25:39 BMP, serum or plasma 2024 025 [facility], [address] [place], [address], 10/11/2024 16:25:39 HbA1c (hemoglob in A1c), blood 2023 024 [facility], [address] [place], [address], 06/01/2024 09:43:38 BMP, serum or plasma [address] [facility] Outpatient Lab, [address] [place], [address], 05/31/2024 20:42:13 lipid panel, serum 2023 024 [facility], [address] [place], [address], 05/31/2024 20:42:15 Referral dentist referral - [facility] for VASILE, she wears partial dentures 2024 025 [email or web address] [address], [address], [place], [address], 12/25/2024 09:15:03 Procedures None recorded. Surgeries None recorded. Imaging MAMMO, screening , bilateral [address] [facility], [address] [place] [address], [address], 08/07/2024 18:24:30 DEXA [address] [facility], [address], [address], 09/25/2024 14:47:22 Medication Orders ibuprofen 600 mg tablet 2023 024 [facility]/Pharmacy #[id number], [address], [place], [address], 08/15/2024 16:46:00 icosapent ethyl 1 gram capsule 2023 024 [facility]/Pharmacy #[id number], [address], [place], [address], 08/15/2024 16:45:58 naproxen 500 mg tablet 2023 024 [email or web address] [facility]/Pharmacy #[id number], [address], [place], [address], 10/27/2024 15:37:05 glipizide 10 mg tablet 2023 024 [facility]/Pharmacy #[id number], [address], [place], [address], 11/01/2024 11:35:08 Ozempic 1 mg/dose (4 mg/3 mL) subcutane ous pen injector 2023 024 [email or web address] [facility]/Pharmacy #[id number], [address], [place], [address], 05/22/2024 15:22:22 Patient TargetsNo targets recorded. Patient InstructionsNo [...] 138 mmol/ L 137-14 5 Not Available [facility] (Lab) [address] [place], [address], 05/31/2024 20:42:13 05/31/20 24 05/31/2024 BASIC METAB OLIC PANEL potassium 4.5 mmol/ L 3.5-5. 1 Not Available [facility] (Lab) [address] [place], [address], 05/31/2024 20:42:13 05/31/20 24 05/31/2024 BASIC METAB OLIC PANEL chloride 109 mmol/ L 98-107 high Not Available [facility] (Lab) [address] [place], [address], 05/31/2024 20:42:13 05/31/20 24 05/31/2024 BASIC METAB OLIC PANEL carbon dioxide 23 mmol/ L 22-30 Not Available [facility] (Lab) [address] [place], [address], 05/31/2024 20:42:13 05/31/20 24 05/31/2024 BASIC METAB OLIC PANEL anion gap 10.5 mmol/ L 14-22 low Not Available [facility] (Lab) [address] [place], [address], 05/31/2024 20:42:13 05/31/20 24 05/31/2024 BASIC METAB OLIC PANEL glucose 159 mg/dL 70-99 high Not Available [facility] (Lab) [address] [place], [address], 05/31/2024 20:42:13 05/31/20 24 05/31/2024 BASIC METAB OLIC PANEL BUN 15 mg/dL 8-19 Not Available [facility] (Lab) [address] [place], [address], 05/31/2024 20:42:13 05/31/20 24 05/31/2024 BASIC METAB OLIC PANEL creatinine 0.60 mg/dL 0.66-1 .25 low Not Available [facility] (Lab) [address] [place], [address], 05/31/2024 20:42:13 05/31/20 24 05/31/2024 BASIC METAB OLIC PANEL GFR >60 Refer ence Range : Sebec ge GFR Healt hy Adult : >60 [...] calcu lator is avail able on the [facility] websi te: https :[email or web address] [email or web address].kid [email or web address] rg/pr ofess ional s/kdo qi/gf r_cal culat or Not Available [facility] (Lab) [address] [place], [address], 05/31/2024 20:42:13 05/31/20 24 05/31/2024 BASIC METAB OLIC PANEL calcium 10.0 mg/dL 8.4-10 .2 Not Available [facility] (Lab) [address] [place], [address], 05/31/2024 20:42:13 05/31/20 24 05/31/2024 LIPID PANEL cholesterol 165 mg/dL 140-19 9 NIH DARRELL NSUS RECOM MENDA TION FOR KANDICE STERO L: ADULT CHILD LOW RISK: <200 <170 BORDE RLINE : <200- 239 ----- HIGH RISK: >240 >200 Not Available [facility] (Lab) [address] [place], [address], 05/31/2024 20:42:15 05/31/20 24 05/31/2024 LIPID PANEL triglyceride s 361 mg/dL 0-150 high NIH DARRELL NSUS REPOR T RECOM MENDA TION FOR TRIGL YCERI MAGNOLIA: ADULT CHILD LOW RISK: <150 ----- BODER LINE: 150-1 99 ----- HIGH RISK: >200 ----- Not Available [facility] (Lab) [address] [place], [address], 05/31/2024 20:42:15 05/31/20 24 05/31/2024 LIPID PANEL HDL cholesterol 33 mg/dL 40- low Not Available [facility] (Lab) [address] [place], [address], 05/31/2024 20:42:15 05/31/20 24 05/31/2024 LIPID PANEL [...] WILL NOT BE REPOR DAVID. Not Available [facility] (Lab) [address] [place], [address], 05/31/2024 20:42:15 05/31/20 24 05/31/2024 HEMOG LOBIN A1C HA1C 8.7 % 4.0-6. 0 high Diabe tyler Scree taz Crite manan: <5.7% Consi stent with absen ce of diabe tyler 5.7-6 .4% Consi stent with incre ased risk for diabe tyler (pred iabet es) >OR=6 .5% Consi stent with diabe tyler REFER ENCE: Diabe tyler Care 2016, 39(Lee ppl.1 ):s13 -s22 Not Available [facility] (Lab) [address] [place], [address], 05/31/2024 21:25:00 10/12/19 25 10/03/2024 DEXA No observ ation record ed. [facility] ([facility]) [address], [place], [address], 10/12/2024 18:49:33 02/08/20 25 02/06/2025 MAMMO , marcye taz, tanmay al, bilat renatal No observ ation record ed. [email or web address] [facility] (Mammography) [address], [place], [address], 02/13/2025 15:14:50 Result Notes None recorded. Problems Name Problem SNOMED Code Status Onset Date Resolution Date Notes Provider Name and Address Organization Details Recorded Time Hyperpara thyroidis m 03694237 Active 2022 Not Available [facility] 4 02:09:39 Abdominal pain 15327843 Completed 202205/25/2023 Ольга rojas RMA null, [place] [facility] 3 11:27:15 Acute urinary tract infection 313693872 Completed 202205/25/2023 Ольга rojas RMA null, [place] [facility] 3 11:26:31 Laborator y test result abnormal 249402122 Completed 202209/15/2023 Ольга rojas RMA kizzy, [place] [facility] 3 15:36:01 Hypertrig lyceridem ia 302864816 Active 2022 Not Available [facility] 4 02:09:39 Type 2 diabetes mellitus 22361044 Completed 202209/15/2023 Brent Hopkins MD [address], [address] , [place] [facility] [place] [facility] 5 12:01:33 Osteoarth ritis 352466567 Active 2022 Not Available [facility] 4 02:09:39 Fatigue 03864471 Completed 202209/15/2023 Ольга rojas RMA null, [place] [facility] 3 15:35:36 Polyp of colon 34206186 Active 2023 Ольга rojas RMA null, [place] [facility] 4 14:59:45 Obstructi ve sleep apnea syndrome 95567821 Active 2023 лОьга rojas, RMA null, [place] [facility] [place] [facility] 4 14:59:47 Hyperlipi demia 65037232 Active 2023 Ольга rojas, RMA null, [place] [facility] 4 14:59:37 Type 2 diabetes mellitus 40036468 Active 2023 Brent Hopkins MD [address], [address], [place], [address] , [facility] 5 12:01:33 Sleep apnea 65365175 Active 2023 Ольга rojas RMA null, [place] [facility] 4 14:59:43 Adult health examinati on Active 2023 Ольга rojas, RMA null, [place] [facility] 4 14:59:39 Tendiniti s of right elbow 47563380230 326535 Active 2023 Estrada Harry MD [address], [address], [place], [address] , [facility] 4 14:47:33 Postmenop ausal osteoporo sis 065094078 Active 2024 Brooke Patel MA null, [place] [facility] 5 10:46:06 Mammograp hy abnormal 726441354 Active 2024 Brooke Patel MA null, [place] [facility] 5 15:23:19 Notes:[facility] titration sleep s tudy 12/23/23 [facility] [employer] [facility] Melissa nasal mask @ 8 cmH2O Medical History: Mild OSAHS, AHI = 12, 10/19/23, on CPAP c/o IVRC Mixed hyperlipidemia T2DM OA Procedure History: Tubal ligation 1986 Colonoscopy with polypectomy 2017 Occupational History: Retired nurse Problem Notes None recorded. Procedures Surgical History Date Name Laterality Status Provider Name and Address Organization Details Recorded Time Junior completed Nydia Hancock on, [facility] [employer] 03/08/2023 11:56:30 Imaging Results None recorded. Procedure Notes None recorded. Medical Equipment None Reported. Allergies Allergen ID Allergen Name Allergen Category Reaction Reaction Severity Criticality Documentation Date Start Date Code Code System Note Provider Name and Address Organization Details Recorded Time 86602 metformin medicatio n diarrhea Not available Not available 03/08/2023 6809 RxNorm Estrada Harry MD [address] [facility], [facility] [address], [place], [address], [employer] 3 12:15:02 Medications Name Sig Start Date Stop Date Status Note LastModified by Organization Details LastModified Time glipizide 10 mg tablet Take 1 tablet twice a day by oral route for 90 days. 11/01 completed Not Available Not Available Not Available ibuprofen 600 mg tablet TAKE 1 TABLET 3 TIMES A DAY BY ORAL ROUTE NEEDED. 2024 active ROXANA AUG 02 ok to rf Not Available Not Available Not Available naproxen 500 mg tablet Take 1 [...] Available Not Available OneTouch Verio test strips TEST TWICE DAILY 2024 active ROXANA NOV ok to rf Not Available Not Available Not Available Vascepa [...] Last Updated DateTime 157.48 cm 24.3 kg/m2 64585.7 9 g 97.5 [degF] 101 /min 98 % 98 % 120 mm[Hg] 80 mm[Hg] NORIS Lees [facility] [employer] 14:49:40 Date Recorded Heart rate Respiratory rate Provider Beni yogi and Address Organization Details Last Updated DateTime 11/01/2024 71 /min 15 /min Brent Hopkins MD [address] [facility] [address], [place], [address], [facility] [employer] [facility] 11/01/2024 12:01:48 Date Recorded Body height Body mass index (BMI) Body weight Body temperature Heart rate Oxygen saturation Oxygen saturation in Arterial blood by Pulse oximetry Systolic blood pressure Diastolic blood pressure Provider Name and Address Organization Details Last Updated DateTime 157.48 cm 24.3 kg/m2 92905.7 9 g 98.1 [degF] 71 /min 98 % 98 % 122 mm[Hg] 74 mm[Hg] Mercy Manrique MA [facility] [employer] [facility] 11:39:29 Date Recorded Body height Body mass index (BMI) Body weight Body temperature Heart rate Oxygen saturation Oxygen saturation in Arterial blood by Pulse oximetry Systolic blood pressure Diastolic blood pressure Provider Name and Address Organization Details Last Updated DateTime 4 157.48 cm 24 kg/m2 88623.6 g 97.3 [degF] 108 /min 98 % 98 % 120 mm[Hg] 80 mm[Hg] NORIS Lees [facility] [employer] [facility] 4 14:52:04 Date Recorded Body height Body mass index (BMI) Body weight Body temperature Heart rate Oxygen saturation Oxygen saturation in Arterial blood by Pulse oximetry Systolic blood pressure Diastolic blood pressure Provider Name and Address Organization Details Last Updated DateTime 4 157.48 cm 24.3 kg/m2 74118.7 9 g 97.6 [degF] 74 /min 98 % 98 % 130 mm[Hg] 80 mm[Hg] NORIS Lees [facility] [employer] [facility] 4 14:30:36 Date Recorded Body weight Body temperature Body mass index (BMI) Body height Heart rate Oxygen saturation Oxygen saturation in Arterial blood by Pulse oximetry Systolic blood pressure Diastolic blood pressure Provider Name and Address Organization Details Last Updated DateTime 4 28650.7 9 g 97.4 [degF] 24.3 kg/m2 157.48 cm 87 /min 98 % 98 % 140 mm[Hg] 84 mm[Hg] Ольга orozco Ramo [facility] [employer] [facility] 4 16:12:47 Social History Question Answer Notes LastModified by Organizat ion Details LastModified Time Tobacco Smoking Status Never Smoker YANN Lay [facility] [employer] [facility] 03/08/2023 11:56:57 Do You Have An Advance Directive? No [email or web address] Information not available 03/08/2023 Are You Blind Or Do You Have Difficulty Seeing? Yes Wears Glasses Information not available 03/08/2023 Is Blood Transfusion Acceptable In An Emergency? No [email or web address] Information not available 03/08/2023 What Is Your Level Of Caffeine Consumption? Moderate [email or web address] Information not available 03/08/2023 In The 14 Days Before Symptom Onset, Have You Had Close Contact With A Laboratory-confi rmed COVID-19 While That Case Was Ill? No [email or web address] Information not available 03/08/2023 In The 14 Days Before Symptom Onset, Have You Had Close Contact With A Person Who Is Under Investigation For COVID-19 While That Person Was Ill? No Information not available 03/08/2023 Are You Deaf Or Do You Have Serious Difficulty Hearing? No [email or web address] Information not available 03/08/2023 What Type Of Diet Are You Following? VEGETARIAN [email or web address] Information not available 03/08/2023 Do You Have An Electrostatic Air Filter? Yes Information not available 10/26/2023 Have There Been Any Changes To Your Family Or Social Situation? No [email or web address] Information not available 03/08/2023 Do You Have A Humidifier? No Information not available 10/26/2023 Do You Use Insect Repellent Routinely? No [email or web address] Information not available 03/08/2023 Where Do You Live? [email or web address] Information not available 12/30/2023 Do You Have A Medical Power Of Electric Golf Cart Repairer? No [email or web address] Information not available 03/08/2023 Do You Have Moisture Problems In Your Home? No Information not available 10/26/2023 What Was The Date Of Your Most Recent Tobacco Screening? 11/01/2024 Information not available 11/01/2024 Do You Have Any Pets? No [email or web address] Information not available 03/08/2023 What Is Your Relationship Status? [email or web address] Information not available 03/08/2023 Do You Use Your Seat Belt Or Car Seat Routinely? Yes [email or web address] Information not available 03/08/2023 Are You Sexually Active? No [email or web address] Information not available 03/08/2023 Do You Have Smoke And Carbon Monoxide Detectors In Your Home? Yes [email or web address] Information not available 03/08/2023 Are You Passively Exposed To Smoke? Yes [email or web address] Information not available 03/08/2023 Are There Any Smokers In Your House? Yes [email or web address] Information not available 03/08/2023 Do You Use Sunscreen Routinely? No [email or web address] Information not available 03/08/2023 Has Tobacco Cessation Counseling Been Provided? No [email or web address] Information not available 03/08/2023 Have You Recently Traveled Abroad? No [email or web address] Information not available 03/08/2023 Do You Have Difficulty Walking Or Climbing Stairs? No [email or web address] Information not available 03/08/2023 Do You Have Any Dietary Restrictions? No [email or web address] Information not available 03/08/2023 Sex: Unknown Functional Status Question Answer Note LastModified by Organizat ion Details LastModified Time Do you use any illicit or recreational drugs? No [email or web address] Information not available 03/08/2023 Do you or have you ever used any other forms of tobacco or nicotine? No [email or web address] Information not available 03/08/2023 What is your level of alcohol consumption? None Information not available 03/08/2023 Are you currently employed? Yes [email or web address] Information not available 03/08/2023 Have you been exposed to chemicals or toxins? not that aware of Information not available 10/26/2023 Do you have transportation difficulties? No [email or web address] Information not available 03/08/2023 Are you able to walk? YESWOREST [email or web address] Information not available 03/08/2023 Do you have difficulty doing errands alone? No [email or web address] Information not available 03/08/2023 Are you able to care for yourself? Yes [email or web address] Information n ot available 03/08/2023 What is your occupation? retired [email or web address] Information not available 03/08/2023 Do you have difficulty dressing or bathing? No Information not available 03/08/2023 What is your exercise level? Moderate [email or web address] Information not available 03/08/2023 Mental Status Question Answer Note LastModified by Organizat ion Details LastModified Time Do you feel stressed (tense, restless, nervous, or anxious, or unable to sleep at night)? BP6245-6 [email or web address] Information not available 03/08/2023 Do you have difficulty concentrating, remembering or making decisions? No [email or web address] Information no t available 03/08/2023 Family History Relationship Description Onset Age of this Age Resolved Age Notes LastModified by Organization Details LastModified Time Mother Diabetes mellitus [email or web address] Not available 08/2023 11:56:12 Mother Hyperlipidem ia [email or web address] Not available 08/2023 11:56:19 Medical History No medical history recorded. Gynecological HistoryNo gynecological history recorded. Obstetrics History GPAL:G 0 P 0 0 0 0 Immunizations Vaccine Type Date Status Note Provider Nam e and Address Organization Details Recorded Time Influenza, high-dose, quadrivalent, PF 3 completed Estrada Harry MD [address], [address], [place], [address], [facility] [employer] 06/29/2023 15:23:10 Pneumococcal conjugate PCV 13 4 completed Bubba Simmons [facility] null, [employer] 10/06/2023 16:44:05 Pneumococcal conjugate PCV 13 4 completed Estrada Harry MD [address], [address], [place], [address], [facility] [employer] 10/21/2023 09:26:28 Influenza, high-dose, trivalent, PF 4 completed Estrada Harry MD [address], [address], [place], [address], [employer] 07/03/2024 17:35:37 Past Encounters Encounter ID Performer Location Encounter Start Date Encounter Closed Date Diagnosis/Indication Diagnosis SNOMED-CT Code Diagnosis ICD10 Code Diagnosis Note [id number] Estrada Harry MD [facility] Internal Med [facility] [address] [place] [address] 03/08/2023 11:49:34 03/08/2023 12:30:31 Adult health examination 976802719 Z00.00 Mammo- 07/2022 Dexa- 2 P1- 2021 PPV23- Flu-2022 Colonoscop y- 2018 COVID- 2 vaccines, 1 booster Diabetes mellitus 609287 09 E11.9 labs , adjust meds Hyperlipidemia 92009621 E78.5 labs Hyperparathyroidism 6699 9008 E21.3 Hypercalcemia 37575381 E 83.52 labs Abdominal pain 37215242 R10.9 [id number] Estrada Harry MD S_[facility] Internal Med [address] [place] [address] 03/22/2023 14:59:33 03/22/2023 16:23:41 Diabetes mellitus 21943390 E11.9 a1C was not done, reorder Hyperparathyroidism 6699 9008 E21.3 needs ultra sound, refer to ENT [id number] Estrada Harry MD [facility] Internal [place] [address] [facility] [place] [address] 03/26/2023 10:48:04 03/26/2023 11:26:57 Diabetes mellitus 07902147 E11.9 a1C 9.8, dist discussed, monitor accu checks , add jardiance [id number] Estrada Harry MD [facility] Internal [address] [place] [address] 04/27/2023 14:09:15 04/27/2023 15:04:51 Diabetes mellitus 40126232 E11.9 getting better, watch diet, keep the same meds, labs in 2 months [id number] Estrada Harry MD [facility] Internal [address] [place] [address] 06/29/2023 14:08:42 06/29/2023 14:45:14 Type 2 diabetes mellitus 39420244 E11.9 getting better, labs then decide about the meds Hyperlipidemia 02648037 E78.5 under control Hypertriglyceridemia 302 279640 E78.1 keep watching diet Hypercalcemia 60213422 E 83.52 check labs Hyperparathyroidism 6699 9008 E21.3 nl scan Osteoarthritis 043223099 M19.90 Administra tion of influenza vaccine 86063284 Z23 [id number] Estrada Harry MD [facility] Internal [address] [address] 09/07/2023 14:42:11 09/07/2023 15:28:38 Fatigue 03224682 R53.83 Sleep michael su disturbance 22562215 G47.9 sleep apnea score done, report in the chart Diabetes mellitus 599589 09 E11.9 Hyperlipidemia 03582596 E78.5 under control Sleep apnea 11854719 G47 .30 [id number] Estrada Harry MD [facility] Internal Med [place] [address] 10/06/2023 14:51:32 10/06/2023 15:35:40 Diabetes mellitus 62864641 E11.9 start ozempic Polyp of colon 95930617 K63.5 last colonoscop y 2017 Administra tion of pneumococcal vaccine 53868847 Z23 [id number] Brent Hopkins MD [place] [address] 10/26/2023 10:45:07 10/28/2023 15:17:15 Obstructive sleep apnea syndrome 86627893 G47.33 G47.36 G47.61 [id number] Estrada Harry MD [facility] Internal [place] [address] 11/15/2023 15:03:12 11/15/2023 15:41:39 Diabetes mellitus 40441026 E11.9 ^ ozempic to 0.5 [id number] Brent Hopkins MD [place] [address] 12/30/2023 14:51:10 12/31/2023 08:44:29 Obstructive sleep apnea syndrome 28409110 G47.33 G47.36 G47.61 [id number] Estrada Harry MD [facility] Internal [place] [address] 01/17/2024 14:38:48 01/17/2024 15:31:37 Type 2 diabetes mellitus 99529706 E11.9 getting better, 6 OZEMPIC to 1 mg Hyperlipidemia 62230348 E78.5 NOT under control, ^ the dose Hypertriglyceridemia 302 969405 E78.1 keep watching diet Hypercalcemia 56464718 E 83.52 fair Hyperparathyroidism 6699 9008 E21.3 nl scan Osteoarthritis 647303484 M19.90 Sleep apnea 80964897 G47 .30 waiting for cpap [id number] Estrada Harry MD [facility] Internal Med [place] [address] 05/22/2024 14:42:06 05/22/2024 15:36:20 Type 2 diabetes mellitus 11446412 E11.9 getting better, Hyperlipidemia 35821496 E78.5 on meds Hypertriglyceridemia 302 340964 E78.1 keep watching diet Hypercalcemia 12503516 E 83.52 fair Hyperparathyroidism 6699 9008 E21.3 nl scan Osteoarthritis 284530478 M19.90 Sleep apnea 32513106 G47 .30 waiting for cpap, urged to make appt Adult heal th examination 467152625 Z00.00 Mammo- 07/2022- [facility]- 9921D25- [id number]- Flu-3Co lonoscopy- 2017, 11/16/23CO VID- 2 vaccines, 1 booster Screening mammography 24 336053 Z12.31 Screening for osteoporosis 383925108 Z13.673 [id number] Estrada Harry MD [facility] Internal Med [facility] [address] [facility] [place] [address] 07/03/2024 14:08:19 07/03/2024 14:57:05 Administration of influenza vaccine 63407738 Z23 Tendinitis of right elbow 6494324040 8075112 M67.823 take naprosyn 500 bidice angely Diabetes mellitus 383991 09 E11.9 uncontroll ednot watching dietdiet discussedr estart Glipizide [id number] Estrada Harry MD [facility] Internal Med [facility] [address] [facility] [place] [address] 08/15/2024 15:43:32 08/15/2024 16:53:55 Type 2 diabetes mellitus 86762372 E11.9 getting better, accu checks reviewed, advised to stop eating sweets Hyperlipidemia 50869031 E78.5 on meds Hypertriglyceridemia [id number] E78.1 keep watching diet Hypercalcemia [id number] E 83.52 fair Hyperparathyroidism 6699 9008 E21.3 nl scan Osteoarthritis [id number] M19.90 Sleep apnea [id number] G47 .30 waiting for cpap, urged to make appt Adult heal examination [id number] Z00.00 Mammo- 07/2022- DUE- Has not scheduled, discussedD exa- 2021- Scheduled for 09/[id number]- [id number]- Flu-4Colono scopy- 2018, 11/16/23CO VID- 2 vaccines, 1 booster [id number] Estrada Harry MD [facility] [address] [place] [address] 10/10/2024 14:41:55 10/10/2024 15:33:03 Diabetes mellitus [id number] E11.9 getting betterkeep watching diet [id number] Brent Hopkins MD [facility] Pulmonolo gy [place] [address] [facility] [address] [place] [address] 11/01/2024 11:22:54 11/01/2024 13:04:03 Obstructive sleep apnea syndrome [id number] G47.33 Health Concerns Section Related Observation LastModified by Organization Detai ls LastModified Time None Recorded Concern Status LastModified by Organization Details LastModified Time None Recorded Advance Directives Directive N: Payers Insurance Date Sequence Insurance Name Policy Number Policy Mchugh Covered Member ID Mchugh Member ID Guarantor Name 12/11/2024 1 [facility] (MEDICARE REPLACEMENT/A DVANTAGE - PPO) [id number] Mendez Dean [id number] Mendez Dean Notes Date Note Type Note Provider Name and Address Organization Details Recorded Time 4 text/html Pt is here today for her routine [place] , family in townPT IS NOT FASTINGMedicare Wellness Exam she was not feeling well for the last 4 days, had runny nose and cough but feeling better today and has no symptoms DM-Has not been checking Accu checks, diet better, A1c was 9, then 8 (01/13/24)Gets eye exam yearly - 03/2024- [facility]- in chartNo hyperglycemiaNo numbness or tinglingCould [...] called her to schedule an appt to bean picker machine) Estrada Harry MD [address], [address], [place], [address], [employer] 05/23/2024 13:27:23 4 text/html Pt is here [...] 20mg daily Estrada Harry MD [address], [address], [place], [address], [employer] 07/03/2024 17:35:52 4 text/html Pt is here today for her routine follow upshe moved from [place] , family in townPT IS NOT FASTING DM-Accu checks- 99-169,Not watching diet, eating wankkrY2d -8.7Gets eye exam yearly - 03/2024- [facility]- in chartNo hyperglycemiaNo numbness or tinglingCould [...] use it Estrada Harry MD [address], [place], [address], [employer] 08/15/2024 16:50:24 5 text/html Pt is here today for a 2 month follow upGlucose 109-136. States she has cut back on sweets. on ozempicaccu checks are under 122losing weight Estrada Harry MD [address], [place], [address], [place] [facility] [employer] 10/10/2024 15:28:37 5 text/html Primary care/Referring provider: Estrada Harry MD CC: I cannot use the CPAP because of all the tubes. I bought and use an anti snoring device artifact snoring treatment in the meantime. I wear partial dentures above and below. During the [facility] home sleep study 10/19/23, AHI = 12, supine AHI = 21. 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 The patient does not need the ramp to start low and go up slowly on the pressure. There is no xerostomia in a.m. There is no hose/mask condensation with water. The patient owns a [employer] wide Melissa nasal mask without chin strap. [...] no chance of dozing. Brent Hopkins MD [address] [place] [address], [address] [address], [place], [address], [facility] [employer] [facility] 11/01/2024 12:07:14 OBGyn Episode No OBEpisode recorded.
== END 2025-03-13 10:15 | disposition home or self-care (01) ==
PROVIDERS: PCP Internal Medicine; Visit Provider Internal Medicine
DX: R92.8 Other abnormal and inconclusive findings on diagnostic imaging of breast (principal)
CPT/HCPCS: 76641; 77061; 77065; G0279

== ENCOUNTER 2025-06-21 20:32 | Emergency (ER) | payer MEDICARE, SELFPAY ==
--- NOTE | ~2025-06-21 | CT_ITS ---
EXAMINATION: CTA brain carotid DATE: 06/22/2025 01:22 INDICATION: Headache. Left face numbness. TECHNIQUE: Computed tomographic angiography (CTA) of the head was performed without and with 100 mL Omnipaque-350 intravenous contrast. CTA of the neck was performed with intravenous contrast. Automated exposure control and iterative reconstruction technique were employed. The dose-length product was 1538.16 mGy- cm. Maximum intensity projection and volume rendered 3D-reconstructions were created by the technologist on a separate workstation. COMPARISON: None. FINDINGS: HEAD CTA: There is an empty sella. There is an arachnoid cyst to the left of the shanika and midbrain. There is no intracranial hemorrhage, acute infarction, or abnormal intracranial mass lesion. The ventricles are normal in size. The orbits are normal. There is mild mucosal thickening in the ethmoid sinuses. The mastoid air cells are normal. Left vertebral artery is dominant. There is no significant stenosis of basilar artery or the posterior cerebral arteries. The posterior communicating arteries are normal. There is no significant stenosis of intracranial internal carotid arteries or anterior or middle cerebral arteries. Anterior communicating artery is normal. 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 NECK CTA: There are no pathologically enlarged lymph nodes. There is no significant stenosis of the vertebral arteries. There is no visible plaque in the proximal internal carotid arteries. There is 0% stenosis of the proximal right internal carotid artery relative to normal distal artery lumen diameter (NASCET criteria). There is 0% stenosis of the proximal left internal carotid artery relative to normal distal artery lumen diameter. There is severe cervical spondylosis. IMPRESSION: 1. No acute intracranial pathology. 2. 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 I called this result to Dr. Levin. 3. 0% stenosis of the proximal internal carotid arteries relative to normal distal artery lumen diameters (NASCET criteria). Reviewed, dictated and finalized at location E. IMPRESSION: 1. No acute intracranial pathology. 2. 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 I c alled this result to Dr. Levin. 3. 0% stenosis of the proximal internal carotid arteries relative to normal dis yasmeen artery lumen diameters (NASCET criteria).
[2025-06-21 20:48] VITALS: BP 155/87; PULSE 88; RESP 16; TEMP 36.5; O2SAT 98
[2025-06-21 23:55] VITALS: BP 136/78; PULSE 74; RESP 18; O2SAT 99
--- NOTE | 2025-06-22 00:16 | ECG_ITS ---
Test Date: 2025-06-22 01:12:14 Measurements Intervals Lampe Rate: 67 P: 32 ND: 139 QRS: 12 QRSD: 73 T: 37 QT: 320 QTc: 338 Interpretive Statements SINUS RHYTHM NORMAL ECG No previous ECG available for comparison Electronically Signed On 06-22-2025 07:40:34 CDT by Morgan Diaz M.D.
--- NOTE | 2025-06-22 00:17 | ED_ITS ---
HPI - Headache General Chief Complaint: Headache Stated Complaint: headache and multiple c/o Time Seen by Provider: 06/21/25 23:50 History of Present Illness HPI Narrative: 69-year-old female with history of type 2 diabetes and hyperlipidemia presenting to the emergency department with left-sided headache and neck pain as well as intermittent nausea and blurry vision. She also describes intermittent facial numbness on her forehead cheek and jaw on the left side. The symptoms have been going on for greater than 1 month according to the patient and at bedside. She states she recalls her primary care provider to discuss this and has an appointment scheduled in June. She had some worsening pain or head today so she called again and was referred to the emergency department to get evaluated. Patient no history of strokes or TIAs. No traumatic injuries. Does not take any blood thinner medications. No paresthesias or weakness in the arms or legs. No history of glaucoma. Comply with her medications. Denies any recent hospitalizations or injuries. Denies any history of headaches like this in the past or any history of migraines. Related Data Allergies Allergy/AdvReac Type Severity Reaction Status Date / Time No Known Allergies Allergy Verified 06/22/25 01:48 Review of Systems 2 Review of Systems: As reviewed above in HPI Exam 2 Narrative: GENERAL: [Well-appearing, well-nourished, and in no acute distress.] HEAD: [Normocephalic, atraumatic.] EYES: [PERRLA and EOMI.] ENT: Nares clear, no rhinorrhea or epistaxis. Mucous membranes moist. NECK: Supple. CHEST: [Clear to auscultation. No respiratory distress.] HEART: [Regular rate and rhythm]. No murmur heard. [Normal peripheral pulses.] ABDOMEN: [Soft, nondistended], [nontender], [No rigidity or guarding] EXTREMITIES: Normal range of motion. [No edema.] SKIN: Warm, dry, no rash. NEURO: Subjective left-sided facial paresthesias but no facial asymmetry or slurring speech. No facial droop. No arm or leg drift. Negative Romberg testing. Pupils are equal reactive to light, extraocular movements are full. Full strength and sensation throughout both arms and legs. PSYCH: [Normal mood and affect.] Course Vital Signs Vital signs: Vital Signs Temperature 36.5 C 06/21/25 20:48 Pulse Rate 88 06/21/25 20:48 Respiratory Rate 16 06/21/25 20:48 Blood Pressure 155/87 H 06/21/25 20:48 Pulse Oximetry 98 06/21/25 20:48 Oxygen Delivery Room Air 06/21/25 20:48 Temperature 36.5 C 06/21/25 20:48 Pulse Rate 74 06/22/25 01:55 Respiratory Rate 17 06/22/25 01:55 Blood Pressure 122/80 06/22/25 01:55 Pulse Oximetry 96 06/22/25 01:55 Oxygen Delivery Room Air 06/21/25 20:48 MDM - Headache MDM Narrative Medical decision making narrative: 69-year-old female with history of type 2 diabetes and hyperlipidemia presenting to the emergency department with left-sided headache and neck pain as well as intermittent nausea and blurry vision. She also describes intermittent facial numbness on her forehead cheek and jaw on the left side. The symptoms have been going on for greater than 1 month according to the patient and at bedside. She states she recalls her primary care provider to discuss this and has an appointment scheduled in June. She had some worsening pain or head today so she called again and was referred to the emergency department to get evaluated. Patient no history of strokes or TIAs. No traumatic injuries. Does not take any blood thinner medications. No paresthesias or weakness in the arms or legs. No history of glaucoma. Comply with her medications. Denies any recent hospitalizations or injuries. Denies any history of headaches like this in the past or any history of migraines. Subjective left-sided facial paresthesias but no facial asymmetry or slurring speech. No facial droop. No arm or leg drift. Negative Romberg testing. Pupils are equal reactive to light, extraocular movements are full. Full strength and sensation throughout both arms and legs. Patient is hemodynamically stable without any tachycardia, fever, hypoxia or blood pressure concerns. Given the chronicity of patient's symptoms for greater than 1 month unlikely acute neurological event her acute stroke but she does have subjective paresthesias isolated to her face in the left side and subjective blurry vision with no ocular or other neuro findings on exam. Could be a complex migraine versus intracranial mass versus now subacute/chronic stroke. Will evaluate with CT head and CT angiography of the head neck. Basic laboratory studies and EKG obtained. Patient placed on splunk developer pulse oximetry. Patient is outside any kind of window for acute interventions if this was stroke in nature. . Patient's head CT and CT angiography shows no intracranial hemorrhage mass effect or midline shift. No abnormal fluid collections. No evidence of infarct. Chronic microangiopathy is noted. No fractures. No stenosis occlusion aneurysm or dissection. Neck CT shows no stenosis occlusions aneurysms or dissections. Patient re-evaluated after migraine cocktail and felt much improved. Symptoms sound consistent with potential migraine complicated by some facial paresthesias but given the reassuring CT scans and the chronicity of her symptoms without evidence of an acute or subacute infarct I believe she can be safely discharged with a neurology referral and given strict return precautions. Patient and family expressed understanding these instructions and safely discharged home at this time. Medical Records Attestation: I reviewed the patient's medical records. Lab Data Attestation: I reviewed the patient's lab results. 06/22/25 00:42 06/22/25 00:42 Labs: Lab Results 06/22/25 Range/Units 00:42 WBC 8.0 (4.5-10.0) K/mm3 RBC 4.35 (4.2-5.4) M/mm3 Hgb 13.3 (12.0-15.0) g/dL Hct 41.3 (37.0-47.0) % MCV 94.9 (80-100) fl MCH 30.6 (26-34) pg MCHC 32.2 (32-36) g/dl RDW 13.2 (11.5-14.5) % Plt Count 246 (150-375) k/mm3 MPV 9.2 (7.4-10.4) fl Immature Gran % (Auto) 0.5 (0-0.5) % Neut % (Auto) 50.3 (45.5-73.1) % Lymph % (Auto) 39.3 (18.3-44.2) % [place] % (Auto) 7.3 (2.6-8.5) % Eos % (Auto) 2.0 (0-4.4) % Baso % (Auto) 0.6 (0.2-1.2) % Lymph # (Auto) 3.16 (0.9-3.2) K/mm3 [place] # (Auto) 0.6 (0.1-0.6) K/mm3 Eos # (Auto) 0.2 (0-0.3) K/mm3 Baso # (Auto) 0.1 (0.0-0.1) K/mm3 Abs Immat Gran (auto) 0.04 H (0.00-0.031) K/mm3 Absolute Neuts (auto) 4.0 (1.3-6.7) K/mm3 Absolute Nucleated RBC 0.000 (0.0-0.012) K/mm3 Nucleated RBC % 0.0 (0.0-0.2) % PT 12.1 (11.1-14.7) Seconds INR 0.9 APTT 30.0 (22.3-36.8) Seconds Sodium 140 (137-145) mmol/L Potassium 4.2 (3.4-5.0) mmol/L Chloride 108 H (98-107) mmol/L Carbon Dioxide 24 (22-30) mmol/L Anion Gap 8 (4-12) mmol/L BUN 13 (7-17) mg/dL Creatinine 0.71 (0.7-1.0) mg/dL Estim Creat Clear Calc Not Reportable Estimated GFR > 60 (59 - ) Glucose 188 H (65-110) mg/dL Calcium 10.6 H (8.4-10.2) mg/dL Total Bilirubin 0.6 (0.2-1.3) mg/dL AST 33 (14-36) U/L ALT 32 (6-35) U/L Alkaline Phosphatase 121 (38-126) U/L Total Protein 7.4 (6.3-8.2) g/dL Albumin 4.5 (3.5-5.1) g/dL Imaging Data Attestation: I personally reviewed and interpreted this imaging study as follows: My impression: No acute CT or CTA findings. Discharge Plan Discharge Clinical Impression: Headache, Facial paresthesia Patient Disposition: Home Condition: Stable Instructions: Antibiotic Form, Acute Headache (DC) Additional Instructions: Your CT scan shows no acute abnormalities, strokes, masses or bleed/clots. Your symptoms got better with a migraine cocktail here in the emergency department. Follow-up with your primary care provider's and we have referred you to her neurologist if this is recurrent or worsening issue. Return with any new complaints, worsening headache, losing consciousness, losing function 1 or both arms or legs, difficulty walking, slurring speech or facial droop otherwise follow-up with your regular care providers and neurologist. Patient Language: Dutch Follow-up/Referrals: Kamryn,Estrada Muhammad MD [Primary Care Provider, Unknown] Kimmy Borden MD [Physician, Neurology] - 1 Week Referral Note: headache and facial paresthesias Time of Disposition: 03:38
[2025-06-22 00:57] LABS: Hematocrit 41.3 % (37.0-47.0); Hemoglobin 13.3 g/dL (12.0-15.0); Immature Granulocyte Percent A 0.5 % (0-0.5); Lymphocytes Absolute Auto 3.16 K/mm3 (0.9-3.2); Mean Corpuscular HGB Conc 32.2 g/dl (32-36); Mean Corpuscular Hemoglobin 30.6 pg (26-34); Mean Corpuscular Volume 94.9 fl (80-100); Nucleated Red Blood Cells Absolute Auto 0.000 K/mm3 (0.0-0.012); Nucleated Red Blood Cells Perc 0.0 % (0.0-0.2); Platelet Count Result 246 k/mm3 (150-375); Red Blood Count 4.35 M/mm3 (4.2-5.4); White Blood Count 8.0 K/mm3 (4.5-10.0)
[2025-06-22 00:59] LABS: Alanine Aminotransferase 32 U/L (6-35); Albumin Level 4.5 g/dL (3.5-5.1); Alkaline Phosphatase 121 U/L (38-126); Anion Gap 8 mmol/L (4-12); Aspartate Amino Transferase 33 U/L (14-36); Bilirubin,Total 0.6 mg/dL (0.2-1.3); Blood Urea Nitrogen 13 mg/dL (7-17); Calcium 10.6 mg/dL (8.4-10.2); Carbon Dioxide 24 mmol/L (22-30); Chloride 108 mmol/L (98-107); Estimated Glomerular Filt Rate > 60; Glucose 188 mg/dL (65-110); Potassium 4.2 mmol/L (3.4-5.0); Sodium 140 mmol/L (137-145); Total Protein 7.4 g/dL (6.3-8.2)
[2025-06-22 01:02] LABS: INR 0.9; Prothrombin Time 12.1 Seconds (11.1-14.7)
[2025-06-22 01:03] LABS: Partial Thromboplastin Time 30.0 Seconds (22.3-36.8)
[2025-06-22] MEDS: Please add drug allergy info to patient profile. 1 EACH XX (01:49)
[2025-06-22] MEDS: SODIUM CHLORIDE 0.9% IV 1,000 ML 999 ML IV CONT (01:49)
[2025-06-22] MEDS: PROCHLORPERAZINE EDISYLATE 10 MG/2 ML VIAL IV PUSH (01:50)
[2025-06-22] MEDS: KETOROLAC 15 MG/ML VIAL (*BKC) IV PUSH (01:51)
[2025-06-22 01:55] VITALS: BP 122/80; PULSE 74; RESP 17; O2SAT 96
[2025-06-22 03:55] VITALS: BP 124/80; PULSE 77; RESP 16; O2SAT 99
[2025-06-22 03:58] VITALS: BP 124/80; PULSE 77; RESP 16; O2SAT 99
== END 2025-06-22 04:03 | disposition home or self-care (01) ==
PROVIDERS: Emergency Provider Student in an Organized Health Care Education/Training Program; PCP Internal Medicine
DX: R51.9 Headache, unspecified (principal); R20.2 Paresthesia of skin; E78.5 Hyperlipidemia, unspecified; E11.9 Type 2 diabetes mellitus without complications; I73.9 Peripheral vascular disease, unspecified; I72.0 Aneurysm of carotid artery
CPT/HCPCS: 36415; 70496; 70498; 80053; 85025; 85610; 85730; 93005; 96361; 96374; 96375; 99284; J0780; J1200; J1885; J7030; Q9967